=== PATIENT | female | born 1945 | race Caucasian/White ===

== ENCOUNTER → 2024-02-25 | Outpatient (CLI) | payer MEDICARE, OTHER ==
[2024-03-06 11:46] LABS: Hematocrit 42.7 % (36.0-47.0); Hemoglobin 14.1 g/dL (12.0-16.0); Red Blood Cell (RBC) Count 4.68 mill/uL (4.20-5.40)
[2024-03-06 11:47] LABS: %Basophils 0.4 % (0.0-1.0); %Eosinophils 0.7 % (0.0-10.0); %Lymphocytes 20.6 % (21.0-51.0); %Monocytes 9.9 % (0.0-10.0); %Neutrophils 68.1 % (42.0-75.0); Manual Diff?? NO; Mean Corpuscular Hemoglobin 30.1 pg (27.0-31.0); Mean Corpuscular Volume 91.2 fL (78.0-98.0); Mean Platelet Volume 9.2 fL (7.4-10.4); Platelet Count 249 10x3/uL (130-400); RBC Distribution Width 13.2 % (11.5-14.5)
[2024-03-06 11:48] LABS: #Basophils 0.03 10x3/uL (0.0-0.2)
[2024-03-06 11:49] LABS: Anion Gap 17 mmol/L (10-20); BUN (Urea Nitrogen) 12 mg/dL (9.8-20.1); Carbon Dioxide 26 mmol/L (23-31); Chloride 101 mmol/L (98-107); Sodium 140 mmol/L (136-145)
[2024-03-06 11:50] LABS: Calc. Creatinine Clearance 0 mL/min (70-130); Calcium 9.8 mg/dL (7.6-10.4); Estimated GFR 52; Glucose 126 mg/dL (83-110)
== END ==
LOC: LABBT 13:14
PROVIDERS: ATTEND Orthopaedic Surgery
DX: Z01.812 Encounter for preprocedural laboratory examination (principal); M75.111 Incomplete rotator cuff tear or rupture of right shoulder, not specified as traumatic
CPT/HCPCS: 80048; 85025

== ENCOUNTER 2024-03-03 08:29 | Day surgery (SDC) | payer MEDICARE, OTHER ==
[2024-03-03] MEDS ORDERED: Ropivacaine 0.2% HCl/PF 20 ML ONE (10:37)
[2024-03-03] MEDS ORDERED: Ropivacaine 0.5% HCl/PF (150 MG/30 ML VIAL) ONE (10:37)
[2024-03-03] MEDS ORDERED: Midazolam HCl 2 mg/2 ml Vial ONE (10:37)
[2024-03-03] MEDS ORDERED: fentaNYL 50 mcg/mL 1 mL Vial ONE (10:37)
[2024-03-03] MEDS ORDERED: Vancomycin 1 GM/200 ML (FROZEN) BAG ONE (10:39)
[2024-03-03] MEDS ORDERED: CEFAZOLIN 2 GM VIAL ONE (10:58)
[2024-03-03] MEDS ORDERED: fentaNYL PF 100 MCG/2 ML SYRINGE ONE (11:14)
[2024-03-03] MEDS ORDERED: Glycopyrrolate 0.2 MG/ML 5 ML SYRINGE ONE (12:10)
[2024-03-03] MEDS ORDERED: PHENYLEPHRINE-NS 100 MCG/ML 10 ML SYRINGE ONE (12:10)
[2024-03-03] MEDS ORDERED: ePHEDrine Sulfate 50 MG/10 ML VIAL ONE (12:13)
[2024-03-03] MEDS ORDERED: Ondansetron PF 4 MG/2 ML Vial IVP PRN (12:15)
[2024-03-03] MEDS ORDERED: Zolpidem Tartrate 5 MG TAB PO PRN (12:15)
[2024-03-03] MEDS ORDERED: Promethazine HCl 25 MG/ML VIAL IM PRN (12:15)
[2024-03-03] MEDS ORDERED: Ropivacaine 0.2% 550 ML 550 ML NERVE BLCK SCH (12:15)
[2024-03-03] MEDS ORDERED: Ketorolac Tromethamine 30 MG (1 mL) VIAL ONE (12:17)
[2024-03-03] MEDS ORDERED: Ondansetron PF 4 MG/2 ML Vial ONE (12:17)
[2024-03-03] MEDS ORDERED: SUGAMMADEX SODIUM 200 MG/2 ML VIAL ONE (12:30)
[2024-03-03] MEDS ORDERED: PROPOFOL 20 ML ONE (12:36)
== END 2024-03-03 15:30 | disposition home or self-care (01) ==
LOC: SDC 08:29
PROVIDERS: ATTEND Orthopaedic Surgery
PROC: 0LM10ZZ Reattachment of Right Shoulder Tendon, Open Approach (ICD-10-PCS; principal; 2024-03-03)
PROC: 0LS30ZZ Reposition Right Upper Arm Tendon, Open Approach (ICD-10-PCS; 2024-03-03)
PROC: 3E0T3BZ Introduction of Anesthetic Agent into Peripheral Nerves and Plexi, Percutaneous Approach (ICD-10-PCS; 2024-03-03)
DX: M75.121 Complete rotator cuff tear or rupture of right shoulder, not specified as traumatic (principal); S46.811A Strain of other muscles, fascia and tendons at shoulder and upper arm level, right arm, initial encounter; M19.019 Primary osteoarthritis, unspecified shoulder; M19.011 Primary osteoarthritis, right shoulder; Z91.040 Latex allergy status; Z88.2 Allergy status to sulfonamides; X58.XXXA Exposure to other specified factors, initial encounter
CPT/HCPCS: 23420; 23430; 64416; A4306; A6223; C1713 ×2; J1885; J2250; J2405; J2704; J2795 ×3; J3010; J3370